=== PATIENT | female | born 1995 | race Caucasian/White ===

== ENCOUNTER 2017-06-24 00:07 | Inpatient (IN) ==
[2017-06-24] MEDS ORDERED: Naloxone 0.4 MG/ML INJ IVP ONE ×3 (00:12→02:24)
[2017-06-24] MEDS ORDERED: 0.9 % Sodium Chloride 1,000 ML IVC ONE (00:13)
[2017-06-24] MEDS ORDERED: Ondansetron 4 MG/2 ML VIAL IVP ONE (00:14)
--- NOTE | 2017-06-24 00:17 | Emergency Department Note ---
Overdose - MDM Narrative Medical decision making narrative: IV fluids, normal saline, Zofran 4 mg IV, 0.4 mg IV Narcan, labs EKG and chest x -ray were obtained patient was easily arousable after Narcan, but she does fall asleep, my concern is due to her taking both fentanyl and heroin, the fentanyl is a long-acting agent in combination with heroin, patient will be admitted for overnight observation - Differential Diagnosis Likely: suicide attempt by multiple drug overdose, accidental drug ingestion - Medical Records Medical records reviewed: Yes I reviewed the patient's medical records. - Lab Data Lab results reviewed: Yes I reviewed the patient's lab results. Result diagrams: 06/24/17 00:55 06/24/17 00:55 Lab Results 06/24/17 06/24/17 06/24/17 Range/Units 00:55 00:55 00:55 WBC 12.1 H (4.3-11.1) K/mcL RBC 4.14 (3.82-4.97) M/mcL Hgb 12.8 (11.5-15.4) g/dL Hct 38.8 (35.3-44.9) % MCV 93.7 (83.0-100.0) fL MCH 30.9 (28.0-33.3) pg MCHC 33.0 (31.6-35.5) g/dL RDW 13.1 (11.5-14.5) % Plt Count 285 (140-400) K/mcL MPV 9.4 (9.4-12.4) fL Immature Gran % 0.2 (0-4) % Seg Neutrophils % 75.3 % Lymphocytes % 18.3 % Monocytes % 4.8 % Eosinophils % 0.9 % Basophils % 0.5 % Neutrophils # 9.1 H (1.6-8.9) K/mcL Lymphocytes # 2.2 (0.6-4.6) K/mcL Monocytes # 0.6 (0.0-1.3) K/mcL Eosinophils # 0.1 (0.0-0.6) K/mcL Basophils # 0.1 (0.0-0.2) K/mcL Sodium 137 (136-145) mEq/L Potassium 3.4 L (3.5-5.1) mEq/L Chloride 102 (98-107) mEq/L Carbon Dioxide 27 (23-29) mEq/L BUN 13 (6-20) mg/dL Creatinine 0.62 (0.60-1.20) mg/dL Est GFR ( Amer) > 60 (> 60) Est GFR (Non-Af Amer) > 60 (> 60) BUN/Creatinine Ratio 21 (6-26) Glucose 90 (70-105) mg/dL Calculated Osmolality 284 (280-300) Lactic Acid 1.4 (0.5-2.2) mmol/L Calcium 9.0 (8.6-10.3) mg/dL Total Bilirubin 0.6 (0.3-1.0) mg/dL Direct Bilirubin 0.1 (0.0-0.2) mg/dL Indirect Bilirubin 0.5 (0.0-1.2) mg/dL AST 110 H (13-39) Units/L ALT 123 H (7-52) Units/L Alkaline Phosphatase 88 (34-104) Units/L Serum Total Protein 6.7 (6.4-8.9) g/dL Albumin 3.7 (3.5-5.7) g/dL Globulin 3.0 (2.4-3.5) g/dL Albumin/Globulin Ratio 1.2 (1.1-2.2) Serum , Qual (Negative) Salicylates < 2.5 L (15.0-30.0) mg/dL Acetaminophen < 10 L (10-20) mcg/mL Ethyl Alcohol < 10 (Less than 10) mg/dL 06/24/17 Range/Units 00:55 WBC (4.3-11.1) K/mcL RBC (3.82-4.97) M/mcL Hgb (11.5-15.4) g/dL Hct (35.3-44.9) % MCV (83.0-100.0) fL MCH (28.0-33.3) pg MCHC (31.6-35.5) g/dL RDW (11.5-14.5) % Plt Count (140-400) K/mcL MPV (9.4-12.4) fL Immature Gran % (0-4) % Seg Neutrophils % % Lymphocytes % % Monocytes % % Eosinophils % % Basophils % % Neutrophils # (1.6-8.9) K/mcL Lymphocytes # (0.6-4.6) K/mcL Monocytes # (0.0-1.3) K/mcL Eosinophils # (0.0-0.6) K/mcL Basophils # (0.0-0.2) K/mcL Sodium (136-145) mEq/L Potassium (3.5-5.1) mEq/L Chloride (98-107) mEq/L Carbon Dioxide (23-29) mEq/L BUN (6-20) mg/dL Creatinine (0.60-1.20) mg/dL Est GFR ( Amer) (> 60) Est GFR (Non-Af Amer) (> 60) BUN/Creatinine Ratio (6-26) Glucose (70-105) mg/dL Calculated Osmolality (280-300) Lactic Acid (0.5-2.2) mmol/L Calcium (8.6-10.3) mg/dL Total Bilirubin (0.3-1.0) mg/dL Direct Bilirubin (0.0-0.2) mg/dL Indirect Bilirubin (0.0-1.2) mg/dL AST (13-39) Units/L ALT (7-52) Units/L Alkaline Phosphatase (34-104) Units/L Serum Total Protein (6.4-8.9) g/dL Albumin (3.5-5.7) g/dL Globulin (2.4-3.5) g/dL Albumin/Globulin Ratio (1.1-2.2) Serum , Qual Negative (Negative) Salicylates (15.0-30.0) mg/dL Acetaminophen (10-20) mcg/mL Ethyl Alcohol (Less than 10) mg/dL - Radiology Data Radiology results reviewed: Yes I reviewed the patient's radiology results. Overdose HPI - General Chief Complaint: ED Overdose Stated Complaint: Overdose Time Seen by Provider: 06/24/17 00:15 Source: patient Mode of arrival: EMS Limitations: no limitations Nursing Notes Reviewed: Yes Vital Signs Reviewed: Yes - History of Present Illness HPI Narrative: 21-year-old female who presented to the emergency room via EMS, patient apparently overdosed tonight on heroin and fentanyl. Patient was found by her family who started CPR, and then EMS arrived they gave the patient Narcan patient is at present awake and lucid and talking. Patient denies any suicidal tendencies this was an accidental overdose. Pt Subjective Complaint: accidental overdose Onset (ago): Just [employer] Intent: accidental How Overdose Was Discovered: called family/friend Treatments Prior to Arrival: oxygen, narcan, IV fluids - Related Data Home Medications Medication Instructions Recorded Confirmed Venlafaxine [Effexor] 150 mg PO DAILY 06/12/17 06/24/17 Trazodone HCl 100 mg PO 06/24/17 Allergies Allergy/AdvReac Type Severity Reaction Status Date / Time No Known Allergies Allergy Verified 09/17/15 06:18 All systems ED: reviewed and negative except as stated. Psychiatric: Reports: anxiety, other (Polysubstance abuse) Past Medical History - Past Medical History Medical history: Reports: asthma Surgical history: Reports: other Psychiatric history: Reports: depression [employer] history: Reports: spontaneous , polycystic ovary syndrome, other - Social History Smoking Status: Current every day smoker Smokeless Tobacco Status: No Alcohol use: Reports: none Drug use: Reports: opiates, other Physical Exam - General Limitations: no limitations General appearance: lethargic - Head Head exam: atraumatic, normocephalic, normal inspection - Eye Eye exam: Present: normal appearance, PERRL, EOMI - Expanded Eye Exam Pupils: Left: reactive - ENT ENT exam: normal exam, normal oropharynx, mucous membranes moist - Expanded ENT Exam External ear exam: Present: normal external inspection Mouth exam: Present: normal external inspection Teeth exam: Present: normal inspection Throat exam: Present: normal inspection - Neck Neck exam: Present: normal inspection, full ROM, trachea midline - Chest Chest inspection: Present: normal inspection, symmetric chest wall rise - Respiratory Respiratory exam: Present: normal lung sounds bilaterally - Cardiovascular Cardiovascular exam: Present: regular rate, normal rhythm, normal heart sounds - Abdominal Exam Abdominal exam: Present: soft, Non-Tender. Absent: tenderness, distention, guarding, rebound, rigidity - Extremities Exam Extremities exam: Present: normal inspection, full ROM. Absent: tenderness, pedal edema - Expanded Upper Extremity Exam Shoulder exam: Present: normal inspection, full ROM Arm exam: Present: normal inspection, full ROM Elbow exam: Present: normal inspection, full ROM Forearm/Wrist exam: Present: normal inspection, full ROM Hand exam: Present: normal inspection, full ROM Vascular exam: Normal: capillary refill, radial pulse - Expanded Lower Extremity Exam Hip/Pelvis exam: Present: normal inspection, full ROM Upper leg exam: Present: normal inspection, full ROM Knee exam: Present: normal inspection, full ROM Lower leg exam: Present: normal inspection, full ROM Ankle exam: Present: normal inspection, full ROM Foot/toe exam: Present: normal inspection, full ROM Neurovascular/Tendon exam: Absent: motor deficit, sensory deficit, tendon deficit - Back Exam Back exam: Present: normal inspection, full ROM. Absent: tenderness - Neurological Exam Neurological exam: Present: alert, oriented X3 - Expanded Neurological Exam Patient oriented to: Present: person, place, time Coma Scale Eye Opening: Spontaneous Coma Scale Motor Response: Obeys Commands Coma Scale Verbal Response: Oriented Coma Scale Total: 15 - Psychiatric Psychiatric exam: Present: normal affect, normal mood - Skin Skin exam: Present: warm, dry, intact, normal color Course Vital Signs Temperature 98.4 F 06/24/17 00:10 Pulse Rate 95 06/24/17 00:10 Respiratory Rate 14 06/24/17 00:10 Blood Pressure 112/68 06/24/17 00:10 O2 Sat by Pulse Oximetry 96 06/24/17 00:10 Temperature 98.4 F 06/24/17 00:10 Pulse Rate 87 06/24/17 01:10 Respiratory Rate 14 06/24/17 01:10 Blood Pressure 115/60 06/24/17 01:10 O2 Sat by Pulse Oximetry 97 06/24/17 01:10 Oxygen Delivery Oxygen Delivery Room Air Disposition Clinical Impression: Accidental drug ingestion, Poisoning by opiate or related narcotic, Drug overdose Disposition: Transfer Short-Term Hosp Condition: Serious Referrals: Allison Deal CNP [Primary Care Provider] - Forms: ED Satisfaction Letter Time of Disposition: 01:40 ( will admit)
[2017-06-24 01:08] LABS: Basophils # 0.1 K/mcL (0.0-0.2); Basophils % 0.5 %; Eosinophils # 0.1 K/mcL (0.0-0.6); Eosinophils % 0.9 %; Hematocrit 38.8 % (35.3-44.9); Hemoglobin 12.8 g/dL (11.5-15.4); Immature Granulocytes % 0.2 % (0-4); Lymphocytes # 2.2 K/mcL (0.6-4.6); Lymphocytes % 18.3 %; Mean Corpuscular Hemoglobin 30.9 pg (28.0-33.3); Mean Corpuscular Volume 93.7 fL (83.0-100.0); Mean Platelet Volume 9.4 fL (9.4-12.4); Monocytes # 0.6 K/mcL (0.0-1.3); Monocytes % 4.8 %; Neutrophils # 9.1 K/mcL (1.6-8.9); Platelet Count 285 K/mcL (140-400); Red Blood Count 4.14 M/mcL (3.82-4.97); Red Cell Distribution Width 13.1 % (11.5-14.5); Segmented Neutrophils % 75.3 %
[2017-06-24 01:21] LABS: Acetaminophen < 10 mcg/mL (10-20); Alanine Aminotransferase 123 Units/L (7-52); Albumin 3.7 g/dL (3.5-5.7); Albumin/Globulin Ratio 1.2 (1.1-2.2); Alkaline Phosphatase 88 Units/L (34-104); Aspartate Amino Transferase 110 Units/L (13-39); BUN/Creatinine Ratio 21 (6-26); Bilirubin,Direct 0.1 mg/dL (0.0-0.2); Bilirubin,Indirect 0.5 mg/dL (0.0-1.2); Bilirubin,Total 0.6 mg/dL (0.3-1.0); Blood Urea Nitrogen 13 mg/dL (6-20); Carbon Dioxide 27 mEq/L (23-29); Chloride 102 mEq/L (98-107); Ethanol < 10 mg/dL (Less than 10); Glucose 90 mg/dL (70-105); Osmolality,Calculated 284 (280-300); Potassium 3.4 mEq/L (3.5-5.1); Salicylate < 2.5 mg/dL (15.0-30.0); Sodium 137 mEq/L (136-145); Total Protein 6.7 g/dL (6.4-8.9); eGFR For African Americans > 60 (> 60); eGFR For Non-African Americans > 60 (> 60)
[2017-06-24 01:57] LABS: Bilirubin,Urine Negative (Negative); Blood,Urine Negative (Negative); Clarity,Urine Clear (Clear); Color,Urine Yellow (Yellow); Glucose,Urine (UA) Normal (Normal); Ketones,Urine Negative (Negative); Leukocyte Esterase,Urine Negative (Negative); Nitrite,Urine Negative (Negative); PH,Urine 5.5 pH Units (5.0-8.0); Protein,Urine 100 mg/dL (Neg-Trace); Urobilinogen,Urine Normal (Normal)
[2017-06-24 02:08] LABS: Amphetamine Screen,Urine Negative ng/mL (Cutoff=1000); Barbiturate Screen,Urine Negative ng/mL (Cutoff=200); Benzodiazepines Screen,Urine Negative ng/mL (Cutoff=200); Cannabinoid Screen,Urine Negative ng/mL (Cutoff = 50); Cocaine Screen,Urine Negative ng/mL (Cutoff= 300); Opiate Screen,Urine Positive ng/mL (Cutoff=300); Phencyclidine Screen,Urine Negative ng/mL (Cutoff=25)
[2017-06-24 02:13] LABS: Bacteria,Urine None Seen per hpf (None-Few); Hyaline Casts,Urine Few per lpf (None-Few); Squamous Epithelial Cell,Urine Few per lpf (None-Few); WBC,Urine 0-3 per hpf (0-3)
[2017-06-24] MEDS ORDERED: Venlafaxine XR (24 HR) 150 MG CAP.ER.24H PO SCH (09:00)
[2017-06-24 11:31] VITALS: BP 101/51
[2017-06-24] MEDS ORDERED: Ondansetron ODT 4 MG TAB.RAPDIS SL PRN (13:31)
--- NOTE | 2017-06-24 15:02 | Internal Med History&Physical ---
Date of Encounter: 06/24/17 Time of Encounter: 14:30 Assessment and Plan (1) Drug overdose Current visit: Yes Status: Acute She states she has returned to her baseline but has significant nausea. She wishes to be discharged home. Qualifiers: Encounter type: initial encounter Injury intent: accidental or unintentional Qualified Code(s): T50.901A - Poisoning by unspecified drugs, medicaments and biological substances, accidental (unintentional), initial encounter (2) Elevated transaminase level Current visit: Yes Status: Acute Not seen on previous labs 10/16/2015. She reports testing negative for hepatitis during April 2017 detox in [place]. (3) Hypokalemia Current visit: Yes Status: Acute Suspect secondary to multiple episodes of vomiting. Internal Medicine - H&P: HPI Chief complaint: Overdose Admitted From: Emergency Dept Plans for Post Hospital Care: Home History of present illness: Ms. Wade is a 21 year old female who was brought by squad to emergency room after found her slumped over in a chair at home. He reports he started CPR because she had perioral cyanosis and was noted not to be breathing. He called the squad who gave her Narcan with immediate improvement. She was evaluated in emergency room but was felt to deserve overnight observation for ongoing care needs. She states she went through a 12 day inpatient detox program in [place] in April 2017. She reports she was clean for approximately one and a half months but restarted using heroin with fentanyl a few weeks ago. She reports she uses on a daily basis. She denies other substance abuse. She reports being tested for HIV and hepatitis during the [place] stay with negative findings. Past Med Surg Social Fam HX - Past Medical History Medical history: asthma, thyroid disease Psychiatric history: depression - Past Surgical History Surgical History: other - Social History Smoking Status: Current every day smoker Packs per day: 1 PACK Smokeless Tobacco Status: No Alcohol use: none Drug use: opiates, IV Drug Use - Family History Mother Living Status: Still Living Hx Family Cardiac Disorders: No Hx Family Respiratory Disorders: No Hx Family Cancer: Yes (THYROID CANCER) Hx Family GI Disorders: No Hx Family Endocrine Disorder: No Hx Family Neuromuscular Disorders: No Hx Family Neurologic Disorders: No Hx Family HEENT Disorders: No Hx Family Autoimmune Disorders: No Internal Medicine - H&P: Meds Venlafaxine [Effexor] 150 mg PO DAILY 06/12/17 [History] Trazodone HCl 100 mg PO 06/24/17 [History] 3 Allergy/AdvReac Type Severity Reaction Status Date / Time ibuprofen Allergy Difficulty Verified 06/24/17 03:19 Breathing All Systems PM: A 10-system review of systems was performed and is negative for pertinent findings except as documented above in the HPI. Review of systems: Gen.: She states her weight has been stable the past few months Cardiovascular: She denies hypertension [place] heart failure chest pain angina endocarditis or other cardiovascular disorders Respiratory: She has smoked since age 8. She has a diagnosis of asthma but does not use medication. GI: She had multiple episodes of vomiting prior to coming to emergency room.. She denies disorders of her liver gallbladder or exocrine pancreas : She has had UTIs in the past. She denies other kidney or bladder disorders Neurologic: She reports she has had multiple syncopal episodes but has had no workup or diagnosis made. She denies other neurologic problems Endocrine: She has been diagnosed with hyperthyroidism and was prescribed medication but chose not to take it. She denies diabetes or hyperlipidemia Hematology/oncology: She denies blood disorders cancers or anemia Psychiatric: She reports anxiety and depression and states she uses Effexor on a daily basis. She also uses trazodone for insomnia. [place] skeletal: She denies known bone joint or muscle disorders. She reports a family history of Marfan's. - Constitutional Vitals: Temp Pulse Resp BP Pulse Ox 98.5 F 74 17 101/51 95 06/24/17 11:27 06/24/17 11:27 06/24/17 11:27 06/24/17 11:27 06/24/17 11:27 Exam: Gen.: She is a well-developed lean occasion female lying in bed who appears nauseated but denies pain. HEENT: Head is atraumatic and normal cephalic. Eyes: EOMI. There is no scleral icterus. Mouth: Mucosa is moist. Neck: Supple and nontender. There is no thyromegaly or adenopathy noted. Heart: Regular without murmurs gallops or ectopics. Lungs: No wheezes or crackles are heard. Abdomen: There is mild tenderness in epigastric area and right upper quadrant area. No masses or guarding are noted. Extremities: There is no cyanosis edema or clubbing noted. Dorsalis pedis and posttibial pulses are trace palpable bilaterally. Neurologic: Mental status: She is talkative and able to answer questions appropriately. Cranial nerves: Smile is symmetric. Forehead wrinkles bilaterally. Tongue protrudes midline. EOMI. Motor: There is no pronator drift. Cerebellar: Finger to nose is intact bilaterally. Skin: Warm and dry. She has piercings of her tongue, nose, and umbilical area. She has multiple tattoos. Internal Med - H&P Results - Labs CBC & Chem 7: 06/24/17 00:55 06/24/17 00:55 - VTE Reasons for not Prescribing Prophylaxis: Treatment not Indicated - Low risk for VTE
--- NOTE | 2017-06-24 15:16 | Discharge Summary ---
Date of Encounter: 06/24/17 Time of Encounter: 14:30 - Discharge Diagnosis (1) Drug overdose Priority: Primary Status: Acute Qualifiers: Encounter type: initial encounter Injury intent: accidental or unintentional Qualified Code(s): T50.901A - Poisoning by unspecified drugs, medicaments and biological substances, accidental (unintentional), initial encounter (2) Elevated transaminase level Priority: Secondary Status: Acute (3) Hypokalemia Priority: Secondary Status: Acute Hospital course: Ms. Wade is a 21 year old female who was brought by squad to emergency room after found her slumped over in a chair at home. He reports he started CPR because she had perioral cyanosis and was noted not to be breathing. He called the squad who gave her Narcan with immediate improvement. She was evaluated in emergency room but was felt to deserve overnight observation for ongoing care needs. Initial orders were written by the emergency room physician. I saw her on June 24 and performed the history and physical and discharge. When I saw her she stated she wished to be discharged home. I offered her additional treatment but she declined stating she did not want to quit using drugs. I informed her of the immediate and long-term risks of IV drug use but she did not wish to stay. I recommended she have repeat labs by her PCP soon to see if transaminase elevation and hypokalemia have improved. - Time Spent with Patient Total time spent providing and/or coordinating discharge services: - Discharge Medications Home Medications: Venlafaxine [Effexor] 150 mg PO DAILY 06/12/17 [History] Trazodone HCl 100 mg PO 06/24/17 [History] Allergies/Adverse Reactions: 3 Allergy/AdvReac Type Severity Reaction Status Date / Time ibuprofen Allergy Difficulty Verified 06/24/17 03:19 Breathing Date of admission: 06/24/17 02:24 Primary care physician: Allison Deal CNP - Constitutional Vitals: Temp Pulse Resp BP Pulse Ox 98.5 F 74 17 101/51 95 06/24/17 11:27 06/24/17 11:27 06/24/17 11:27 06/24/17 11:27 06/24/17 11:27 - Patient Status Disposition: Home, Self-Care Condition: Serious - Discharge Instructions Follow Up With: Allison Deal CNP [Primary Care Provider] - 1 week - Diet and Activity Activity: resume usual activities as tolerated Diet: advance to your usual diet - VTE Reasons for not Prescribing Prophylaxis: Treatment not Indicated - Low risk for VTE
--- NOTE | 2017-06-27 15:47 | Electrocardiograph Report ---
[address] [address] Test Date: 2017-06-24 Pat Name: Aria Wade Department: [id number] Room: [facility] Gender: F Epic Ambulatory Analyst: [id number] : 1995 Requested By: Clarita Lubin Order Number: [id number] Reading MD: Ethan Adam Measurements Intervals [place] Rate: 110 P: 128 MI: 142 QRS: 128 QRSD: 83 T: 89 QT: 316 QTc: 381 Interpretive Statements SINUS TACHYCARDIA ARM LEADS REVERSED Electronically Signed On 06-27-2017 15:45:21 EDT by Ethan Adam
== END 2017-06-24 15:40 | disposition home or self-care (01) | DRG 816 ==
LOC: INPPIK 00:07 → EMEROOPIK 00:07 → INPPIK 02:25
PROVIDERS: ADMIT Internal Medicine; ATTEND Internal Medicine